=== PATIENT | female | born 1995 | race Caucasian/White ===

== ENCOUNTER 2022-06-17 16:02 | Emergency (ER) | payer OTHER, SELFPAY ==
[2022-06-17 16:10] VITALS: BP 148/97; PULSE 68; RESP 20; TEMP 36.7; O2SAT 98
[2022-06-17] MEDS: METOCLOPRAMIDE HCL INJ 10 MG/2 ML VIAL IV PUSH (16:52)
[2022-06-17] MEDS: KETOROLAC 30 MG/ML VIAL (*BKC) IV PUSH (16:52)
[2022-06-17] MEDS: diphenhydrAMINE HCl INJ 50 MG/ML VIAL 25 MG IV PUSH (16:53)
--- NOTE | 2022-06-17 16:59 | ED.HA ---
HPI - Headache General Chief Complaint: Headache Stated Complaint: migraine Time Seen by Provider: 06/17/22 16:04 Source: patient Mode of arrival: ambulatory Limitations: no limitations History of Present Illness MD elicited complaint: headache Onset (ago): day(s) Onset description: gradually Location: occipital Severity: moderate Pain scale (0-10): 8 Quality & Timing: throbbing and pulsatile Relieving factors: rest and dark room Context: occurred at rest Related Data Home Medications Medication Instructions Recorded Confirmed montelukast 10 mg tablet 10 mg PO DAILY 06/17/22 06/17/22 (Singulair) Allergies Allergy/AdvReac Type Severity Reaction Status Date / Time albuterol Allergy Unknown Verified 06/17/22 16:28 aripiprazole [From Abilify] Allergy Unknown Verified 06/17/22 16:28 benzonatate Allergy Unknown Verified 06/17/22 16:28 [From Tessalon Perles] ziprasidone [From Geodon] Allergy Unknown Verified 06/17/22 16:28 Review of Systems Review of Systems: All systems reviewed & are unremarkable except as noted in HPI and below PMFSH Past Medical History Medical History Asthma Migraine Exam Const: General: healthy appearing Nutritional Appearance: well nourished Orientation/consciousness: patient oriented x3 Limitations: no limitations HENMT: Head: normal to inspection Face/Nose/Sinus: Normal external nose present Face and sinus: normal facial exam Mouth: Yes Normal oral and palatal mucosa present Eyes: Conjunctivae: conjunctivae normal EOM: EOMs intact bilaterally Direct Ophthalmoscopy: no photophobia Neck: Neck: normal visual inspection Chest: Chest palpation & inspection: normal inspection of the chest Resp: Effort & Inspection: normal respiratory effort Cardio: Rate: regular rate Rhythm: regular rhythm GI: GI Palp: Yes Soft to palpation Auscultation: normal bowel sounds : General: Yes bladder normal to palpation Urinary Catheter: Urinary Catheter: patent and draining Back/Spine/Pelvis: Back: no CVA tenderness Skin: General skin exam: normal color Rashes: no rashes Wounds: no wounds Neuro: General: patient oriented x3 Cranial nerves: Yes Nystagmus not present Speech: normal speech Extrem: General: normal to inspection Psych: Mental Status: mental status grossly normal Affect: normal affect Attitude: cooperative Course Course Emergency Course: patient received normal saline along with ketorolac with Reglan and Benadryl Vital Signs Vital signs: Vital Signs Temperature 36.7 C 06/17/22 16:10 Pulse Rate 68 06/17/22 16:10 Respiratory Rate 20 06/17/22 16:10 Blood Pressure 148/97 H 06/17/22 16:10 Pulse Oximetry 98 06/17/22 16:10 Oxygen Delivery Room Air 06/17/22 16:10 Temperature 36.7 C 06/17/22 16:10 Pulse Rate 68 06/17/22 16:10 Respiratory Rate 20 06/17/22 16:10 Blood Pressure 148/97 H 06/17/22 16:10 Pulse Oximetry 98 06/17/22 16:10 Oxygen Delivery Room Air 06/17/22 16:10 Critical Care Time Critical Care Time Critical Care Time: No Discharge Plan Discharge Clinical Impression: Migraine Patient Disposition: Home, Self-Care Condition: Stable Instructions: Antibiotic Form, Migraine Headache (ED) Additional Instructions: advised to follow-up with primary care physician for further evaluation treatment as needed, take medicine as prescribed. Prescriptions: No Action montelukast [Singulair] 10 mg Tablet 10 mg PO DAILY Follow-up/Referrals: UNKNOWN,DOCTOR [Primary Care Provider] -
[2022-06-17 17:15] VITALS: BP 132/80; PULSE 65; RESP 16; O2SAT 99
[2022-06-17] MEDS: SODIUM CHLORIDE 0.9% IV 1,000 ML 999 ML IV CONT (17:18)
[2022-06-17 18:00] VITALS: BP 143/76; PULSE 79; RESP 16; TEMP 36.4; O2SAT 100
== END 2022-06-17 18:13 | disposition home or self-care (01) ==
PROVIDERS: Emergency Provider Emergency Medicine
DX: G43.909 Migraine, unspecified, not intractable, without status migrainosus (principal)
CPT/HCPCS: 96361; 96374; 96375; 99284; J1200; J1885; J2765; J7030